=== PATIENT | male | born 1935 | race African-American/Black ===

== ENCOUNTER 2016-10-10 11:11 | Emergency (ER) | payer MEDICARE, OTHER ==
[~2016-10-10] VITALS: Ht 190.5 cm; Wt 95.0 kg
[2016-10-10] MEDS ORDERED: SODIUM CHLORIDE FLUSH 3 ML SYR IV PRN (12:00)
[2016-10-10] MEDS ORDERED: SODIUM CHLORIDE FLUSH 10 ML SYR IV PRN (12:00)
[2016-10-10] MEDS ORDERED: SODIUM CHLORIDE 250 ML IV PRN (12:00)
[2016-10-10] MEDS ORDERED: MECLIZINE 25 MG (ANTIVERT) TABLET PO ONE (12:20)
[2016-10-10 13:35] LABS: BASOPHILS % (AUTO) 1 % (0-2); EOSINOPHILS # (AUTO) 0.1 10^3uL; EOSINOPHILS % (AUTO) 2 % (0-4); LYMPHOCYTES # (AUTO) 1.6 X10^3; MEAN CORPUSCULAR HEMOGLOBIN 29.4 PG (26.0-34.0); MEAN CORPUSCULAR HGB CONC 34.3 g/dL (31.0-37.0); MEAN CORPUSCULAR VOLUME 86 FL (80-100); MEAN PLATELET VOLUME 10.5 FL (6.0-9.5); MONOCYTES # (AUTO) 0.4 X10^3; MONOCYTES % (AUTO) 7 % (3-11); NEUTROPHILS # (AUTO) 3.6 X10^3; NEUTROPHILS % (AUTO) 62 % (51-67); PLATELET COUNT 186 10^3uL (150-450); WHITE BLOOD COUNT 5.82 10^3uL (4.0-11.0)
[2016-10-10 13:46] LABS: ALBUMIN 4.4 g/dL (3.4-5.0); ANION GAP 15.5 MEQ/L (3-15); CALCULATED IONIZED CALCIUM 4.5 mg/dL (3.8-4.6); MAGNESIUM* 2.4 mg/dL (1.6-2.3); TOTAL PROTEIN 7.8 g/dL (6.4-8.5)
[2016-10-10 13:55] LABS: BILIRUBIN,URINE Negative (Negative); CLARITY,URINE Clear; COLOR,URINE Yellow; GLUCOSE, URINE (UA) Negative (Negative); LEUKOCYTE ESTERASE ,URINE Negative (Negative); PH,URINE 5.5 (5.0 - 8.0); UROBILINOGEN,URINE 0.2 mg/dL (0.2-1.0)
--- NOTE | 2016-10-10 13:55 | NUR ---
DR ENGLISH STATES TO HOLD IV AFTER ORDERING SAME. CL
[2016-10-10 14:18] LABS: RBC,URINE 0-2 /HPF; URINE CENTRIFUGED VOLUME 12 mL
--- NOTE | 2016-10-10 14:19 | NUR ---
Bari hernández in ED - 10/10/16 at 1421 by [id number] SONO TECH STATES SHE WILL NOTIFY RADIOLOGY TO SEND A COPY OF SONO REPORT TO DR LABOY WHOM PT IS SCHED TO SEE ON CL
[2016-10-10 15:47] VITALS: BP 150/70
== END 2016-10-10 15:12 | disposition home or self-care (01) ==
LOC: ED 11:12
DX: R42 Dizziness and giddiness (principal); H61.23 Impacted cerumen, bilateral; I49.9 Cardiac arrhythmia, unspecified; I10 Essential (primary) hypertension; Z87.891 Personal history of nicotine dependence
CPT/HCPCS: 36415; 69209; 71010; 80053; 80162; 81003; 81015; 82550; 82553; 83735; 83880; 84484; 85025; 85610; 85730; 93005; 99285; A9270; 93010; 99284